=== PATIENT | female | born 1940 | race Caucasian/White ===

== ENCOUNTER 2019-06-15 12:16 | Day surgery (SDC) | payer MEDICARE, OTHER ==
[~2019-06-15 12:16] MED LIST: CHONDR SU A NA/HYALUR INTRAOC KIT (SURGICARE) ONE; KETOROLAC TROMETHAMINE 0.45% 4 DROP/0.4 ML DROPERETTE OS PRN; LIDOCAINE 1% INJ-PF (10 MG/ML) 30 ML SDV ONE
[2019-06-15] MEDS: CYCLOPENTOLATE 0.2%/PHENYLEPHRINE 1% OPH SOLN 2 ML OS PRN ×3 (12:26→12:52)
[2019-06-15] MEDS: TROPICAMIDE 1% OPH SOLN 3 ML OS PRN ×3 (12:26→12:52)
[2019-06-15] MEDS: BESIFLOXACIN HCL 0.6% OPH SUSP 5 ML BOTTLE OS PRN ×4 (12:27→13:27)
[2019-06-15] MEDS: TETRACAINE HCL 0.5% OPH SOLN 4 ML OS PRN ×4 (12:28→12:55)
[2019-06-15] MEDS ORDERED: MIDAZOLAM 2 MG/2 ML INJ ONE (12:54)
[2019-06-15] MEDS: EPINEPHRINE INJ/PF 1 MG/1 ML AMPULE ONE ×2 (13:03)
[2019-06-15] MEDS: DORZOLAMIDE HCL 2%/TIMOLOL MALEAT 0.5% OPH SOLN 10 ML OS PRN ×2 (13:27)
--- NOTE | 2019-06-16 08:49 | [facility] OPERATIVE REPORT E ---
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 PROCEDURE PERFORMED: Phacoemulsification and posterior chamber intraocular lens implant with a Malyugin ring in the left eye. SURGEON: SIGRID CASILLAS M.D. ANESTHESIOLOGIST: Rima De La Cruz M.D. ANESTHESIA: Topical with IV sedation and monitored anesthesia care. TISSUE TO PATHOLOGY: None. COMPLICATIONS: None. BLOOD LOSS: None. INDICATIONS FOR SURGERY: The patient is a 79-year-old lady who presented to our clinic complaining of difficulty reading and driving due to blurry vision in her left eye. On examination she was found to have a best corrected visual acuity of 20/50 in the left eye. Ophthalmoscopy revealed a 3+ nuclear and 2+ cortical degeneration cataract in the left eye, with a normal-appearing cornea, retina, vitreous, and optic nerve. I discussed the findings of the exam with the patient. We discussed the risks, benefits, and alternatives of cataract extraction and intraocular lens implant in the left eye as a means of improving her vision. Risks that were presented to the patient included infection, bleeding, retinal detachment, possible need for additional surgery. I explained to the patient she may need to wear glasses after surgery. After our discussion, she indicated interest in having this procedure performed by signing an informed, witnessed consent form. REPORT OF PROCEDURE: On the day of surgery, she was given a topical application to the left eye while in the preop holding area that consisted of 0.5% tetracaine, 1% tropicamide, Cyclomydril, 0.6% Besivance, and 0.45% Acular. She was taken to the operating room in a supine position in the standard eye bed. Intravenous sedation was administered, and she was prepped and draped in the standard ophthalmic fashion. Attention was directed to the left eye where a paracentesis was created at the 5:30 position at the limbus with a 15-degree blade. The anterior chamber was filled with 0.3 mL of 1% methylparaben-free lidocaine, and after 30 seconds the anterior chamber was filled with viscoelastic material. A 3-plane corneal incision was made with a keratome at the 3 o'clock position at the limbus. Despite use of the diluting drops, intracameral lidocaine, and viscoelastic material, the pupil remained dilated only to about 3.5 mm in diameter. I chose to use a Malyugin ring to expand the pupil for better visualization of the lens during surgery. The lens was removed from packing, inspected, and found to be free of defects. It was loaded into its light technician which was advanced through the temporal limbal wound into the anterior chamber where I grasped the iris at the pupil margin at 3 o'clock, 6 o'clock, 12 o'clock, and 9 o'clock positions. This expanded the pupil to a 6.25 mm diameter. A 39-gauge bent needle cystotome was then used to make a continuous curvilinear capsulorrhexis in the anterior capsule of the lens. The lens was hydrodissected using balanced saline solution. The lens nucleus was removed by phacoemulsification using a kownlx-nnc-spicucc technique. The lens cortex was removed by irrigation and aspiration. The posterior capsular bag was then filled with viscoelastic material and a lens implant was inserted into the posterior capsular bag. The lens chosen for this case is a 1-piece acrylic lens from [employer], model ZCB00, serial number [id number]. Lens power is 22.0 diopters. The lens was removed from its package, inspected, and found to be free of defects. It was loaded into an [employer] [place] light technician, and the light technician was passed through the corneal incision. The lens was advanced into the posterior capsular bag. It was centered in the bag with a Varna spatula. The viscoelastic material was then removed by irrigation and aspiration. The wounds were then closed by stromal hydration. They were tested with Weck-Jen sponges and found to have no leaks. The intraocular pressure was assessed by manual palpation and found to be within physiologic range. Drapes and speculum were removed. Periocular skin was flushed with a wet followed by dry 4 x 4 gauze. Drops of Timolol and Besivance were instilled in the inferior cul-de-sac of the left eye and it was covered with a Sotelo shield. She was taken to the recovery room in good condition. She tolerated the procedure well. She was given prescriptions for Durezol, BromSite, and gatifloxacin to use every 2 hours while awake in the left eye. She will return to my clinic for a follow-up eval the day after surgery. DICTATING PHYSICIAN: SIGRID CASILLAS MD [id number] PHY#: [id number] ID: [id number] JOB#: [id number] ACCT: [id number] cc:SIGRID CASILLAS M.D. >
== END 2019-06-15 14:10 | disposition home or self-care (01) ==
LOC: SC 12:16
PROVIDERS: ATTEND Ophthalmology
DX: H25.812 Combined forms of age-related cataract, left eye (principal); Z98.41 Cataract extraction status, right eye; E78.00 Pure hypercholesterolemia, unspecified; E03.9 Hypothyroidism, unspecified; I25.2 Old myocardial infarction; K21.9 Gastro-esophageal reflux disease without esophagitis; D64.9 Anemia, unspecified; Z87.891 Personal history of nicotine dependence; Z79.899 Other long term (current) drug therapy
CPT/HCPCS: 66984; V2632; J2250; J3490 ×3; A9270; J0171; 142

== ENCOUNTER → 2019-10-17 | Outpatient (CLI) | payer MEDICARE, OTHER ==
[2019-10-17 15:48] LABS: HEMATOCRIT 36.5 % (36.0-47.0); HEMOGLOBIN 12.1 g/dL (12.0-15.5); MEAN CORPUSCULAR HEMOGLOBIN 28.4 pg (27.0-33.4); MEAN CORPUSCULAR HGB CONC 33.2 g/dL (32.0-36.0); MEAN CORPUSCULAR VOLUME 85 fl (80-97); PLATELET COUNT 322 10^3/uL (150-450); RED BLOOD COUNT 4.28 10^6/uL (3.72-5.28); RED CELL DISTRIBUTION WIDTH 15.8 % (11.5-14.0); WHITE BLOOD COUNT 6.1 10^3/uL (4.0-10.5)
--- NOTE | 2019-10-17 15:56 | EKG REPORT ---
SEVERITY:- BORDERLINE ECG - SINUS RHYTHM LEFT AXIS DEVIATION BORDERLINE T ABNORMALITIES, ANT-LAT LEADS : Confirmed by: Otto Lopez MD 17-Oct-2019 15:56:01
--- NOTE | 2019-10-17 15:58 | RADIOLOGY REPORT (SQ) ---
EXAM DESCRIPTION: CHEST PA/LATERAL COMPLETED DATE/TIME: 10/17/2019 3:36 pm REASON FOR STUDY: COUGH COMPARISON: None. EXAM PARAMETERS: NUMBER OF VIEWS: two views TECHNIQUE: Digital Frontal and Lateral radiographic views of the chest acquired. RADIATION DOSE: NA LIMITATIONS: none FINDINGS: LUNGS AND PLEURA: No opacities, masses or pneumothorax. No pleural effusion. MEDIASTINUM AND HILAR STRUCTURES: No masses or contour abnormalities. HEART AND VASCULAR STRUCTURES: Heart normal size. No evidence for failure. Aortic atherosclerosis. BONES: No acute findings. Exaggerated thoracic kyphosis. HARDWARE: None in the chest. OTHER: No other significant finding. IMPRESSION: No focal consolidation or other evidence of acute cardiopulmonary process. TECHNICAL DOCUMENTATION: JOB ID: [id number] 1987 [employer]- All Rights Reserved Reading location - IP/workstation name: [email or web address]
[2019-10-17 16:08] LABS: ANION GAP 9 (5-19); BLOOD UREA NITROGEN 14 mg/dL (7-20); CALCIUM 9.7 mg/dL (8.4-10.2); CARBON DIOXIDE 27 mmol/L (22-30); CHLORIDE 99 mmol/L (98-107); GLUCOSE 86 mg/dL (75-110); POTASSIUM 5.1 mmol/L (3.6-5.0)
== END ==
LOC: OD 14:54
PROVIDERS: ATTEND Surgery
DX: Z01.818 Encounter for other preprocedural examination (principal); C18.0 Malignant neoplasm of cecum; E61.1 Iron deficiency; E07.9 Disorder of thyroid, unspecified; K21.9 Gastro-esophageal reflux disease without esophagitis
CPT/HCPCS: 36415; 71046; 80048; 82378; 85027; 93005; 93010

== ENCOUNTER 2019-10-30 08:23 | Inpatient (IN) | payer MEDICARE, OTHER ==
[~2019-10-30 08:23] MED LIST changes: +ACETAMINOPHEN 1,000 MG/100 ML RTUPB IV ONE; +ACETAMINOPHEN 1,000 MG/100 ML RTUPB IV PRN; +BUPIVACAINE HCL 0.25 % INJ/PF (2.5 MG/1 ML) 30 ML VIAL ONE; +CEFOXITIN SODIUM 2 GM in DEXTROSE 5%-WATER 100 ML IV PRN; -CHONDR SU A NA/HYALUR INTRAOC KIT (SURGICARE) ONE; +DEXAMETHASONE SOD PHOSPHATE INJ 4 MG/1 ML VIAL ONE; +FENTANYL CITRATE INJ/PF 100 MCG/2 ML AMPUL ONE; +FENTANYL CITRATE INJ/PF 250 MCG/5 ML AMPULE ONE; -KETOROLAC TROMETHAMINE 0.45% 4 DROP/0.4 ML DROPERETTE OS PRN; +LACTATED RINGERS 1000 ML IV PRN; +LIDOCAINE 0.5% INJ-PF (5 MG/ML) 50 ML SDV SUBCUT PRN; -LIDOCAINE 1% INJ-PF (10 MG/ML) 30 ML SDV ONE; +MIDAZOLAM 2 MG/2 ML INJ ONE; +ONDANSETRON HCL INJ/PF 4 MG/2 ML SDV ONE; +PROPOFOL INJ 200 MG/20 ML VIAL IV ONE; +SUGAMMADEX SODIUM 200 MG/2 ML SDV IV ONE
[2019-10-30] MEDS ORDERED: BUPIVACAINE HCL 0.25 % INJ/PF (2.5 MG/1 ML) 30 ML VIAL ONE (10:32)
[2019-10-30] MEDS ORDERED: PROMETHAZINE HCL INJ 25 MG/1 ML VIAL IV PRN ×2 (11:48)
[2019-10-30] MEDS ORDERED: MORPHINE SULFATE 10 MG/ML INJ IV PRN (11:48)
[2019-10-30] MEDS ORDERED: DIPHENHYDRAMINE HCL 50 MG/ML VIAL IV PRN (11:48)
[2019-10-30] MEDS ORDERED: FENTANYL CITRATE INJ/PF 100 MCG/2 ML AMPUL IV PRN ×2 (11:48)
[2019-10-30] MEDS ORDERED: MEPERIDINE HCL/PF INJ 25 MG/1 ML DISP.SYRIN IV PRN (11:48)
[2019-10-30] MEDS ORDERED: ONDANSETRON HCL INJ/PF 4 MG/2 ML SDV IV PRN (11:48)
[2019-10-30] MEDS ORDERED: KETOROLAC TROMETHAMINE INJ/PF 30 MG/1 ML SDV IV SCH (14:00)
[2019-10-30] MEDS: FENTANYL CITRATE INJ/PF 100 MCG/2 ML AMPUL IV PRN ×2 (14:15→14:20)
[2019-10-30] MEDS ORDERED: FENTANYL CITRATE INJ/PF 100 MCG/2 ML AMPUL ONE (14:15)
[2019-10-30] MEDS ORDERED: PROMETHAZINE HCL INJ 25 MG/1 ML VIAL ONE (14:17)
[2019-10-30] MEDS ORDERED: ROCURONIUM BROMIDE INJ 50 MG/5 ML VIAL IV ONE (14:33)
[2019-10-30] MEDS ORDERED: SUCCINYLCHOLINE CHLORIDE INJ 200 MG/10 ML VIAL ONE (14:33)
[2019-10-30] MEDS: DEXTROSE 5%-LACTATED RINGERS 1,000 ML IV PRN (15:37)
[2019-10-30] MEDS: ACETAMINOPHEN 1,000 MG/100 ML RTUPB IV SCH ×2 (15:38→22:05)
[2019-10-30] MEDS: ENOXAPARIN SODIUM INJ 40 MG/0.4 ML DISP.SYRIN SUBCUT SCH (16:02)
[2019-10-30] MEDS: MORPHINE SULFATE 10 MG/ML INJ IV PRN ×2 (16:21→20:06)
[2019-10-30] MEDS: CEFOXITIN SODIUM 2 GM in DEXTROSE 5%-WATER 100 ML IV SCH (18:30)
[2019-10-30] MEDS: ONDANSETRON HCL INJ/PF 4 MG/2 ML SDV IV PRN (19:53)
[2019-10-30] MEDS: FAMOTIDINE INJ/PF 20 MG/2 ML SDV IV SCH (22:05)
[2019-10-31] MEDS: CEFOXITIN SODIUM 2 GM in DEXTROSE 5%-WATER 100 ML IV SCH (03:34)
[2019-10-31] MEDS: MORPHINE SULFATE 10 MG/ML INJ IV PRN ×3 (04:38→22:28)
[2019-10-31] MEDS: ACETAMINOPHEN 1,000 MG/100 ML RTUPB IV SCH ×3 (05:33→22:13)
[2019-10-31 05:53] LABS: ABSOLUTE LYMPHOCYTES (AUTO) 0.9 10^3/uL (0.5-4.7); ABSOLUTE MONOCYTES (AUTO) 0.7 10^3/uL (0.1-1.4); ABSOLUTE NEUT (AUTO) 7.5 10^3/uL (1.7-8.2); BASOPHILS % (AUTO) 0.1 % (0-2); HEMATOCRIT 32.4 % (36.0-47.0); HEMOGLOBIN 10.9 g/dL (12.0-15.5); LYMPHOCYTES % (AUTO) 9.5 % (13-45); MEAN CORPUSCULAR HEMOGLOBIN 28.8 pg (27.0-33.4); MEAN CORPUSCULAR HGB CONC 33.6 g/dL (32.0-36.0); MEAN CORPUSCULAR VOLUME 86 fl (80-97); MONOCYTES % (AUTO) 7.5 % (3-13); PLATELET COUNT 303 10^3/uL (150-450); RED BLOOD COUNT 3.78 10^6/uL (3.72-5.28); RED CELL DISTRIBUTION WIDTH 15.4 % (11.5-14.0); SEGMENTED NEUTROPHILS % (AUTO) 82.9 % (42-78); TOTAL CELLS COUNTED % (AUTO) 100 %
[2019-10-31 06:09] LABS: ANION GAP 8 (5-19); BLOOD UREA NITROGEN 9 mg/dL (7-20); CARBON DIOXIDE 27 mmol/L (22-30); CHLORIDE 101 mmol/L (98-107); GLUCOSE 129 mg/dL (75-110); POTASSIUM 4.1 mmol/L (3.6-5.0)
--- NOTE | 2019-10-31 09:07 | PDOC PROGRESS REPORT ---
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 Physical Exam Vital Signs: Temp Pulse Resp BP Pulse Ox 98.9 F 79 18 149/71 H 99 10/31/19 08:26 10/31/19 08:26 10/31/19 08:26 10/31/19 08:26 10/31/19 08:26 Intake & Output 10/30/19 10/31/19 11/01/19 06:59 06:59 06:59 Intake Total 3000 Output Total 2325 Balance 675 Weight 66.2 kg Results Laboratory Results: 10/31/19 05:17 10/31/19 05:17 10/30/19 10/30/19 10/31/19 09:29 09:29 05:17 WBC 9.0 RBC 3.78 Hgb 10.9 L Hct 32.4 L MCV 86 MCH 28.8 MCHC 33.6 RDW 15.4 H Plt Count 303 Seg Neutrophils % 82.9 H Sodium Potassium 4.5 Chloride Carbon Dioxide Anion Gap BUN Creatinine Est GFR ( Amer) Glucose Calcium Blood Type O POSITIVE Antibody Screen NEGATIVE 10/31/19 05:17 WBC RBC Hgb Hct MCV MCH MCHC RDW Plt Count Seg Neutrophils % Sodium 136.1 L Potassium 4.1 Chloride 101 Carbon Dioxide 27 Anion Gap 8 BUN 9 Creatinine 0.70 Est GFR ( Amer) > 60 Glucose 129 H Calcium 9.0 Blood Type Antibody Screen Assessment & Plan - Diagnosis (1) Cancer of right colon Is this a current diagnosis for this admission?: Yes - Time Time Spent with patient: Less than 15 minutes - Plan Summary Plan Summary: This is a 79-year-old female status post laparoscopic right hemicolectomy. This morning, she complains of pain. She is receiving IV Tylenol and IV morphine. She cannot receive Toradol due to an aspirin allergy (her throat "swells shut"). I have recommended that the patient get out of bed and ambulate some today. She reports a small amount of nausea last night with ingestion of liquids. I have encouraged her to go slow with her liquids. She denies any flatus or bowel movement today. Out of bed today. Physical therapy consult. Leave Granados in place today, Granados out tomorrow. Continue with current pain medication regimen. Continue with full liquids for now. Awaiting bowel function.
[2019-10-31] MEDS: FAMOTIDINE INJ/PF 20 MG/2 ML SDV IV SCH ×2 (09:45→22:13)
[2019-10-31] MEDS: ENOXAPARIN SODIUM INJ 40 MG/0.4 ML DISP.SYRIN SUBCUT SCH (09:45)
[2019-10-31] MEDS: DEXTROSE 5%-LACTATED RINGERS 1,000 ML IV PRN (15:12)
[2019-11-01] MEDS: ONDANSETRON HCL INJ/PF 4 MG/2 ML SDV IV PRN ×2 (04:52→21:31)
[2019-11-01] MEDS: MORPHINE SULFATE 10 MG/ML INJ IV PRN ×3 (04:52→21:31)
[2019-11-01 05:46] LABS: ABSOLUTE LYMPHOCYTES (AUTO) 1.1 10^3/uL (0.5-4.7); ABSOLUTE MONOCYTES (AUTO) 0.6 10^3/uL (0.1-1.4); ABSOLUTE NEUT (AUTO) 6.7 10^3/uL (1.7-8.2); BASOPHILS % (AUTO) 0.4 % (0-2); EOSINOPHILS % (AUTO) 0.2 % (0-6); HEMATOCRIT 32.3 % (36.0-47.0); HEMOGLOBIN 10.7 g/dL (12.0-15.5); LYMPHOCYTES % (AUTO) 13.1 % (13-45); MEAN CORPUSCULAR HEMOGLOBIN 28.5 pg (27.0-33.4); MEAN CORPUSCULAR VOLUME 86 fl (80-97); MONOCYTES % (AUTO) 6.9 % (3-13); PLATELET COUNT 316 10^3/uL (150-450); RED BLOOD COUNT 3.74 10^6/uL (3.72-5.28); RED CELL DISTRIBUTION WIDTH 15.2 % (11.5-14.0); SEGMENTED NEUTROPHILS % (AUTO) 79.4 % (42-78); TOTAL CELLS COUNTED % (AUTO) 100 %; WHITE BLOOD COUNT 8.4 10^3/uL (4.0-10.5)
[2019-11-01 06:05] LABS: ANION GAP 8 (5-19); BLOOD UREA NITROGEN 8 mg/dL (7-20); CARBON DIOXIDE 27 mmol/L (22-30); CHLORIDE 100 mmol/L (98-107); GLUCOSE 124 mg/dL (75-110); POTASSIUM 3.7 mmol/L (3.6-5.0)
[2019-11-01] MEDS: ACETAMINOPHEN 1,000 MG/100 ML RTUPB IV SCH ×3 (06:13→21:32)
--- NOTE | 2019-11-01 08:12 | PDOC PROGRESS REPORT ---
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 Physical Exam Vital Signs: Temp Pulse Resp BP Pulse Ox 99.4 F 83 18 166/85 H 95 10/31/19 23:56 10/31/19 23:56 10/31/19 23:56 10/31/19 23:56 10/31/19 23:56 Intake & Output 10/31/19 11/01/19 11/02/19 06:59 06:59 06:59 Intake Total 3000 2998 Output Total 2325 2250 Balance 675 748 Weight 66.2 kg 66.5 kg General appearance: PRESENT: no acute distress Respiratory exam: PRESENT: clear to auscultation dion Cardiovascular exam: PRESENT: RRR GI/Abdominal exam: PRESENT: hypoactive bowel sounds, soft, other - Not distended and not tender, all incisions are clean, dry, and intact Results Laboratory Results: 11/01/19 04:45 11/01/19 04:45 11/01/19 11/01/19 04:45 04:45 WBC 8.4 RBC 3.74 Hgb 10.7 L Hct 32.3 L MCV 86 MCH 28.5 MCHC 33.0 RDW 15.2 H Plt Count 316 Seg Neutrophils % 79.4 H Sodium 135.2 L Potassium 3.7 Chloride 100 Carbon Dioxide 27 Anion Gap 8 BUN 8 Creatinine 0.72 Est GFR ( Amer) > 60 Glucose 124 H Calcium 9.0 Assessment & Plan - Diagnosis (1) Cancer of right colon Is this a current diagnosis for this admission?: Yes - Time Time Spent with patient: 15-24 minutes - Plan Summary Plan Summary: Assessment: Postoperative day #2 following laparoscopic right hemicolectomy for colon cancer Patient hemodynamically stable, afebrile Physical exam unremarkable with abdomen soft, hypoactive bowel sounds, incisions clean Blood work within normal limits Patient bowel function still has not returned No acute general surgery issues identified Plan: Continue current management Diet to be advanced once the patient presents with flatus Continue ambulation Incentive spirometer
[2019-11-01] MEDS: ENOXAPARIN SODIUM INJ 40 MG/0.4 ML DISP.SYRIN SUBCUT SCH (10:30)
[2019-11-01] MEDS: FAMOTIDINE INJ/PF 20 MG/2 ML SDV IV SCH ×2 (10:30→21:32)
[2019-11-01] MEDS: DEXTROSE 5%-LACTATED RINGERS 1,000 ML IV PRN (13:48)
[2019-11-02] MEDS: MORPHINE SULFATE 10 MG/ML INJ IV PRN (01:54)
[2019-11-02] MEDS: ACETAMINOPHEN 1,000 MG/100 ML RTUPB IV SCH (06:11)
[2019-11-02] MEDS ORDERED: OXYCODONE-ACETAMINOPHEN 5-325 MG TABLET PO PRN (09:45)
--- NOTE | 2019-11-02 09:48 | PDOC PROGRESS REPORT ---
Subjective Progress Note for:: 11/02/19 Subjective:: Patient doing well, no postoperative issues, tolerating full liquids, no flatus. Hiking in halls, wants to shower. Pain controlled. Reason For Visit: C18.0 MALIGNANT NEOPLASM OF CECUM Physical Exam Vital Signs: Temp Pulse Resp BP Pulse Ox 98.1 F 67 16 140/77 H 100 11/02/19 08:26 11/02/19 08:26 11/02/19 08:26 11/02/19 08:26 11/02/19 08:26 Intake & Output 11/01/19 11/02/19 11/03/19 06:59 06:59 06:59 Intake Total 2998 1979 Output Total 2250 Balance 748 1979 Weight 66.5 kg 66.8 kg General appearance: PRESENT: no acute distress GI/Abdominal exam: PRESENT: other - All incisions covered with dry dressings, no drainage. No abdominal tenderness, slightly pouchy Results Laboratory Results: 11/01/19 04:45 11/01/19 04:45 Assessment & Plan - Diagnosis (1) Cancer of right colon Is this a current diagnosis for this admission?: Yes Plan: Impression: Status post right hemicolectomy, minimally invasive, 3 days ago, Dr. Aguirre, doing well, progressing satisfactorily Recommendations: 1. Shower 2. Switch patient over to p.o. analgesics 3. Will add Colace to regimen 4. Likely advance diet today, possibly home tomorrow. Patient informed of plan. - Time Time Spent with patient: 15-24 minutes
[2019-11-02] MEDS: FAMOTIDINE INJ/PF 20 MG/2 ML SDV IV SCH ×2 (10:02→22:13)
[2019-11-02] MEDS: DOCUSATE SODIUM 100 MG CAPSULE PO SCH ×2 (10:02→17:32)
[2019-11-02] MEDS: ENOXAPARIN SODIUM INJ 40 MG/0.4 ML DISP.SYRIN SUBCUT SCH (10:03)
--- NOTE | 2019-11-02 10:51 | Operative Report ---
Nonrecallable Operative Report DATE OF SURGERY: 10/30/19 PREOPERATIVE DIAGNOSIS: Right-sided colon cancer POSTOPERATIVE DIAGNOSIS: Same as above. OPERATION: Laparoscopic right hemicolectomy with ileocolic anastomosis. SURGEON: JONATHAN BELL ANESTHESIA: GA TISSUE REMOVED OR ALTERED: Right hemicolectomy COMPLICATIONS: None apparent ESTIMATED BLOOD LOSS: Minimal PROCEDURE: Drains/implants: None. Procedure in detail: After informed consent was obtained, the patient was brought into the operating room and laid in the supine position. The area of the abdomen was prepped and draped in a normal sterile fashion. A supraumbilical incision was created with a 15 blade scalpel. Dissection was carried through the subcutaneous tissue using sharp and blunt dissection. The linea alba fascia was incised sharply, the abdomen was entered sharply. The balloon trocar was inserted, and pneumoperitoneum was achieved. A right upper quadrant 5 mm trocar, suprapubic 5 mm trocar, and left lower quadrant 12 mm trocar were placed under direct laparoscopic visualization. The cecum was then retracted anteriorly. The ileocolic vessel was divided using the Endo TERRANCE stapler. Next, the mesentery of the right colon was elevated away from the retroperitoneum. The dissection was carried both cranially and caudally. The ureter was identified, and spared along its course. The small bowel was then divided at the ileocecal valve using the Endo TERRANCE stapler. Next, a medial to lateral dissection was undertaken, elevating the mesentery away from the retroperitoneum. The harmonic scalpel was used to divide the mesentery medially, up to the level of the mid transverse colon. Next, the right colon was mobilized medially, and the white line of Toldt was divided. This was done all the way to the mid transverse colon. After the colon was adequately mobilized, attention was turned to the terminal ileum. Terminal ileum was freed from the right pelvic sidewall. Again, the ureter was identified and spared along its course. Once adequate mobilization was performed, the supraumbilical trocar was removed, and an incision was created in the linea alba fascia. The Ash wound retractor was inserted, and tightened. The transverse colon was then exteriorized, as well as the small bowel (terminal ileum). The Endo TERRANCE had already been passed off the field, in light of this a TERRANCE 75 stapler was opened. The right colon was divided at the mid transverse colon, using the TERRANCE 75 stapler. Next, a side to side stapled anastomosis was created between the terminal ileum and the transverse colon. The resulting defect was closed using the TERRANCE-75 stapler. 2 crotch stitches of 3-0 Vicryl were placed to buttress the anastomosis. The anastomosis was then returned to the abdominal cavity. Gas insufflation was again attached, and pneumoperitoneum was achieved. The camera was inserted into the abdomen, and the anastomosis was inspected. There were no kinks or twists in the anastomosis. The anastomosis laid in good place. After this was confirmed, the 12 mm trocar was removed. The 12 mm defect was closed using 0 Vicryl suture in uvjpuz-[id number]-yzbzt fashion, with the aid of the Juan Carlos-Elsa device. Next, the 5 mm trochars were removed. The Ash wound retractor was removed. The midline fascia was then closed using #1 PDS suture in simple running fashion. The overlying skin was closed using skin vidya. Dressings were placed, and the procedure was concluded. All sponge, instrument, and needle counts were correct x2. Condition: Stable.
[2019-11-02] MEDS: DEXTROSE 5%-LACTATED RINGERS 1,000 ML IV PRN ×2 (11:00→23:16)
[2019-11-03] MEDS ORDERED: ACETAMINOPHEN 325 MG TABLET PO PRN (08:07)
--- NOTE | 2019-11-03 08:11 | PDOC PROGRESS REPORT ---
Subjective Progress Note for:: 11/03/19 Subjective:: The patient reports mild cramp-like abdominal discomfort, flatus present Reason For Visit: C18.0 MALIGNANT NEOPLASM OF CECUM Physical Exam Vital Signs: Temp Pulse Resp BP Pulse Ox 98.5 F 78 17 163/74 H 95 11/03/19 00:54 11/03/19 00:54 11/03/19 00:54 11/03/19 00:54 11/03/19 00:54 Intake & Output 11/02/19 11/03/19 11/04/19 06:59 06:59 06:59 Intake Total 1979 4047 Balance 1979 4047 Weight 66.8 kg 63.3 kg General appearance: PRESENT: no acute distress Respiratory exam: PRESENT: clear to auscultation dion Cardiovascular exam: PRESENT: RRR GI/Abdominal exam: PRESENT: distended - Minimally distended, normal bowel sounds, soft, other - Old incisions are clean, dry, and intact Results Laboratory Results: 11/01/19 04:45 11/01/19 04:45 Assessment & Plan - Diagnosis (1) Cancer of right colon Is this a current diagnosis for this admission?: Yes - Time Time Spent with patient: 15-24 minutes - Plan Summary Plan Summary: Assessment: Postoperative day #3 following laparoscopic right hemicolectomy for colon cancer Vital signs are stable Abdomen soft, incisions clean, dry, and intact Flatus present, no bowel movement yet Patient complaining of heartburn Plan: Advance diet to low fiber diet Maalox 30 mils p.o. every 2 hours for heartburn Continue Colace Patient to be discharged to home when her bowels are moving
[2019-11-03] MEDS ORDERED: MAG HYDROX/AL HYDROX/SIMETH SUSP 30 ML UDCUP PO SCH (09:00)
[2019-11-03] MEDS: FAMOTIDINE INJ/PF 20 MG/2 ML SDV IV SCH ×2 (09:36→21:02)
[2019-11-03] MEDS: DOCUSATE SODIUM 100 MG CAPSULE PO SCH ×2 (09:36→17:09)
[2019-11-03] MEDS: ENOXAPARIN SODIUM INJ 40 MG/0.4 ML DISP.SYRIN SUBCUT SCH (09:37)
[2019-11-03] MEDS: DEXTROSE 5%-LACTATED RINGERS 1,000 ML IV PRN (09:39)
[2019-11-03] MEDS ORDERED: HYDROCODONE/ACETAMINOPHEN 10-325 MG TABLET PO PRN (10:29)
[2019-11-03] MEDS ORDERED: DOCUSATE SODIUM 100 MG CAPSULE PO ONE (11:00)
[2019-11-03] MEDS ORDERED: LEVOTHYROXINE SODIUM 0.1 MG TABLET PO ONE ×2 (15:00→17:15)
[2019-11-03] MEDS: ONDANSETRON HCL INJ/PF 4 MG/2 ML SDV IV PRN (18:25)
[2019-11-04] MEDS ORDERED: LEVOTHYROXINE SODIUM 0.1 MG TABLET PO SCH (06:00)
[2019-11-04] MEDS ORDERED: (PENDING PHARMACY ID) (Levothyroxine Sodium [Levothyroxine Sodium] 125 MCG) PO SCH (06:00)
[2019-11-04] MEDS ORDERED: LEVOTHYROXINE SODIUM 0.025 MG TABLET PO SCH (06:00)
[2019-11-04 06:19] LABS: ABSOLUTE EOSINOPHILS # (AUTO) 0.2 10^3/uL (0.0-0.6); ABSOLUTE LYMPHOCYTES (AUTO) 1.4 10^3/uL (0.5-4.7); ABSOLUTE MONOCYTES (AUTO) 0.5 10^3/uL (0.1-1.4); BASOPHILS % (AUTO) 0.5 % (0-2); EOSINOPHILS % (AUTO) 3.8 % (0-6); HEMATOCRIT 33.2 % (36.0-47.0); HEMOGLOBIN 11.1 g/dL (12.0-15.5); LYMPHOCYTES % (AUTO) 22.7 % (13-45); MEAN CORPUSCULAR HEMOGLOBIN 28.1 pg (27.0-33.4); MEAN CORPUSCULAR HGB CONC 33.3 g/dL (32.0-36.0); MEAN CORPUSCULAR VOLUME 84 fl (80-97); MONOCYTES % (AUTO) 7.9 % (3-13); PLATELET COUNT 359 10^3/uL (150-450); RED BLOOD COUNT 3.94 10^6/uL (3.72-5.28); RED CELL DISTRIBUTION WIDTH 14.8 % (11.5-14.0); SEGMENTED NEUTROPHILS % (AUTO) 65.1 % (42-78); TOTAL CELLS COUNTED % (AUTO) 100 %; WHITE BLOOD COUNT 6.1 10^3/uL (4.0-10.5)
[2019-11-04 06:53] LABS: ANION GAP 10 (5-19); BLOOD UREA NITROGEN 8 mg/dL (7-20); CALCIUM 8.5 mg/dL (8.4-10.2); CARBON DIOXIDE 28 mmol/L (22-30); CHLORIDE 98 mmol/L (98-107); GLUCOSE 93 mg/dL (75-110); POTASSIUM 3.9 mmol/L (3.6-5.0)
--- NOTE | 2019-11-04 07:45 | PDOC PROGRESS REPORT ---
Subjective Progress Note for:: 11/04/19 Subjective:: The patient reports vomiting a large amount of undigested food yesterday, she slept all night and she feels much better today. 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 Physical Exam Vital Signs: Temp Pulse Resp BP Pulse Ox 98.7 F 90 17 149/88 H 97 11/03/19 12:00 11/03/19 12:00 11/03/19 12:00 11/03/19 12:00 11/03/19 12:00 Intake & Output 11/03/19 11/04/19 11/05/19 06:59 06:59 06:59 Intake Total 4048 2868 Balance 4048 2868 Weight 63.3 kg 65.1 kg General appearance: PRESENT: no acute distress Respiratory exam: PRESENT: chest wall tenderness Cardiovascular exam: PRESENT: RRR GI/Abdominal exam: PRESENT: diminished bowel sounds, distended, soft, other - All incisions are clean, dry, and intact Results Laboratory Results: 11/04/19 05:41 11/04/19 05:41 11/04/19 11/04/19 05:41 05:41 WBC 6.1 RBC 3.94 Hgb 11.1 L Hct 33.2 L MCV 84 MCH 28.1 MCHC 33.3 RDW 14.8 H Plt Count 359 Seg Neutrophils % 65.1 Sodium 136.1 L Potassium 3.9 Chloride 98 Carbon Dioxide 28 Anion Gap 10 BUN 8 Creatinine 0.87 Est GFR ( Amer) > 60 Glucose 93 Calcium 8.5 Assessment & Plan - Diagnosis (1) Cancer of right colon Is this a current diagnosis for this admission?: Yes - Time Time Spent with patient: 15-24 minutes - Plan Summary Plan Summary: Assessment: Postoperative day #4 following laparoscopic right hemicolectomy The patient reports vomiting x1 yesterday with relief of abdominal distention and discomfort Vital signs stable, patient afebrile Blood work within normal limits Abdomen slightly distended but soft, all incisions are clean dry intact No flatus or stools for the past 24 hours Plan: Continue current management Diet to be advanced once the patient bowel function returns No general surgery concerns at this point
[2019-11-04] MEDS: DOCUSATE SODIUM 100 MG CAPSULE PO SCH (10:12)
[2019-11-04] MEDS: FAMOTIDINE INJ/PF 20 MG/2 ML SDV IV SCH (10:13)
[2019-11-04] MEDS: ENOXAPARIN SODIUM INJ 40 MG/0.4 ML DISP.SYRIN SUBCUT SCH (11:14)
[2019-11-04 12:29] VITALS: BP 155/78
== END 2019-11-04 13:20 | disposition home or self-care (01) | DRG 331 ==
LOC: INOR 08:23 → 5 15:13
PROVIDERS: ADMIT Surgery; ATTEND Surgery
PROC: 0DTF4ZZ Resection of Right Large Intestine, Percutaneous Endoscopic Approach (ICD-10-PCS; principal; 2019-10-30 10:30)
DX: C18.0 Malignant neoplasm of cecum (principal); K21.9 Gastro-esophageal reflux disease without esophagitis; E61.1 Iron deficiency; E07.9 Disorder of thyroid, unspecified; Z88.6 Allergy status to analgesic agent; Z85.828 Personal history of other malignant neoplasm of skin
CPT/HCPCS: 36415; 80048; 840; 84132; 85025; 86850; 86900; 86901; 88309; 94799; J0131; J0330; J0694; J1100; J1650; J2250; J2270; J2405; J2550; J2704; J3010; J3490; J7060; J7121; S0028

== ENCOUNTER → 2020-04-26 | Outpatient (CLI) | payer MEDICARE, OTHER ==
[2020-04-26 13:14] LABS: ABSOLUTE EOSINOPHILS # (AUTO) 0.1 10^3/uL (0.0-0.6); ABSOLUTE LYMPHOCYTES (AUTO) 1.8 10^3/uL (0.5-4.7); ABSOLUTE MONOCYTES (AUTO) 0.3 10^3/uL (0.1-1.4); ABSOLUTE NEUT (AUTO) 3.8 10^3/uL (1.7-8.2); BASOPHILS % (AUTO) 0.6 % (0-2); HEMATOCRIT 40.3 % (36.0-47.0); HEMOGLOBIN 13.8 g/dL (12.0-15.5); LYMPHOCYTES % (AUTO) 29.4 % (13-45); MEAN CORPUSCULAR HEMOGLOBIN 29.8 pg (27.0-33.4); MEAN CORPUSCULAR HGB CONC 34.1 g/dL (32.0-36.0); MEAN CORPUSCULAR VOLUME 87 fl (80-97); MONOCYTES % (AUTO) 5.8 % (3-13); PLATELET COUNT 246 10^3/uL (150-450); RED BLOOD COUNT 4.62 10^6/uL (3.72-5.28); RED CELL DISTRIBUTION WIDTH 13.7 % (11.5-14.0); SEGMENTED NEUTROPHILS % (AUTO) 63.2 % (42-78); TOTAL CELLS COUNTED % (AUTO) 100 %
[2020-04-26 13:33] LABS: ALBUMIN 4.2 g/dL (3.5-5.0); ALKALINE PHOSPHATASE 106 U/L (38-126); ANION GAP 6 (5-19); ASPARTATE AMINO TRANSFERASE 34 U/L (14-36); BILIRUBIN,TOTAL 0.6 mg/dL (0.2-1.3); BLOOD UREA NITROGEN 24 mg/dL (7-20); CALCIUM 9.5 mg/dL (8.4-10.2); CARBON DIOXIDE 28 mmol/L (22-30); CHLORIDE 102 mmol/L (98-107); GLUCOSE 88 mg/dL (75-110); IRON(TIBC) 97.3 ug/dL (37-170); POTASSIUM 5.4 mmol/L (3.6-5.0)
[2020-04-26 14:03] LABS: CARCINOEMBRYONIC ANTIGEN 3.46 ng/mL (<3.0)
== END ==
LOC: OD 11:53
PROVIDERS: ATTEND Internal Medicine Hematology & Oncology
DX: C18.2 Malignant neoplasm of ascending colon (principal)
CPT/HCPCS: 36415; 80053; 82306; 82378; 82728; 83540; 83550; 85025